=== PATIENT | female | born 1995 | race Caucasian/White ===

== ENCOUNTER 2017-02-09 13:36 | Emergency (ER) | payer SELFPAY ==
[~2017-02-09] VITALS: Ht 167.6 cm; Wt 95.3 kg
[2017-02-09 14:07] VITALS: BP 123/77
[2017-02-09] MEDS ORDERED: CITA40TA12 PO ×2 (14:08→14:11)
--- NOTE | 2017-02-09 14:09 | PHYS DOC ---
Adult General Chief Complaint Chief Complaint: MEDICATION REFILL [facility] HPI Patient is a 21 year old female presents to the emergency department stating that she needs a refill of her Celexa 40 mg in which she takes daily. She also states that she needs a refill of her Percocet 10 mg. She states that she is in between doctors and does not have enough to get her through. She states that she has a doctor's appointment in 3 weeks. Patient states that she lives in [facility] and has recently moved to this area. Review of Systems Review of Systems Constitutional: Denies fever or chills [] Eyes: Denies change in visual acuity, redness, or eye pain [] HENT: Denies nasal congestion or sore throat [] Respiratory: Denies cough or shortness of breath [] Cardiovascular: No additional information not addressed in HPI [] GI: Denies abdominal pain, nausea, vomiting, bloody stools or diarrhea [] : Denies dysuria or hematuria [] Musculoskeletal: Denies back pain or joint pain [] Integument: Denies rash or skin lesions [] Neurologic: Denies headache, focal weakness or sensory changes [] Endocrine: Denies polyuria or polydipsia [] Allergies Allergies Allergies Coded Allergies Type Severity Reaction Last Updated Verified Penicillins Allergy Intermediate 02/09/17 Yes cyclobenzaprine Allergy Intermediate 02/09/17 Yes morphine Allergy Intermediate 02/09/17 Yes Physical Exam Physical Exam Constitutional: Well developed, well nourished, no acute distress, non-toxic appearance. [] HENT: Normocephalic, atraumatic, bilateral external ears normal, oropharynx moist, no oral exudates, nose normal. [] Eyes: PERRLA, EOMI, conjunctiva normal, no discharge. [] Neck: Normal range of motion, no tenderness, supple, no stridor. [] Cardiovascular:Heart rate regular rhythm, no murmur [] Lungs & Thorax: Bilateral breath sounds clear to auscultation [] Skin: Warm, dry, no erythema, no rash. [] Back: No tenderness Extremities: No tenderness, no cyanosis, no clubbing, ROM intact, no edema. [] Neurologic: Alert and oriented X 3, normal motor function, normal sensory function, no focal deficits noted. [] Psychologic: Affect normal, judgement normal, mood normal. [] Current Patient Data Vital Signs Vital Signs Date Time Temp Pulse Resp B/P (MAP) Pulse Ox O2 Delivery O2 Flow Rate FiO2 02/09/17 14:07 98.3 108 18 123/77 (92) 100 Room Air 98.3 EKG EKG [] Radiology/Procedures Radiology/Procedures [] Course & Med Decision Making Course & Med Decision Making Pertinent Labs and Imaging studies reviewed. (See chart for details) We'll provide patient with Celexa here in the emergency department. She'll be provided with a prescription for this medication for at least the next 2 weeks. Patient will also be provided with a Percocet here in the emergency department. She was informed that we do not refill chronic pain medication here in the emergency department. Patient states she understood this however she does have a doctor's appointment 3 weeks. Patient also states that she is supposed to have surgery done in [facility]. Patient was instructed to use Tylenol or ibuprofen for pain and discomfort. Also once again mentioned to her will fall her prescription for Celexa. Patient agrees with discharge instructions, treatment regimens and follow-up recommendations. Signs and symptoms to return back to emergency department as been provided. All questions were answered for patient at her bedside. After setting up the prescription for Celexa and talking with her about Percocet patient has asked if I can't find her with a higher dose of Percocet here in the emergency department which she can cut in half and take half of it now and half ago when she gets home. Explained to her that we have to document the actual encounter of her taking the medication to get in half and allowing her to take at home was not a possibility. Patient states that she had talked to her physician who is going to fax her Percocet and her Celexa prescription up to the pharmacy here. Patient is requesting to have a Percocet here and will be discharged home. [] Dragon Disclaimer Dragon Disclaimer This electronic medical record was generated, in whole or in part, using a voice recognition dictation system. Departure Departure Impression: Primary Impression: Medication refill Disposition: HOME, SELF-CARE Condition: STABLE Patient Instructions: Medication Refill, Emergency Department Additional Instructions: Activity as tolerated. Tylenol or ibuprofen for pain and discomfort. Follow-up with your physician in which you have an appointment in 3 weeks. Return to emergency department sign symptoms of become worse. LIZETTE DYKES APRN Feb 09, 2017 14:09
[2017-02-09] MEDS ORDERED: oxyCODONE/APAP 5/325 1 TAB TABLET PO ONE (14:30)
== END 2017-02-09 14:25 | disposition home or self-care (01) ==
LOC: ER 13:36
DX: Z76.0 Encounter for issue of repeat prescription (principal); Z88.0 Allergy status to penicillin; Z88.8 Allergy status to other drugs, medicaments and biological substances; Z88.5 Allergy status to narcotic agent
CPT/HCPCS: 99282

== ENCOUNTER 2018-05-30 14:24 | Emergency (ER) | payer MEDICAID ==
[~2018-05-30] VITALS: Ht 160 cm; Wt 81.6 kg
[~2018-05-30 14:24] MED LIST: CITA40TA12 PO
[2018-05-30 14:50] VITALS: BP 130/73
[2018-05-30] MEDS ORDERED: DICL50TA4 PO (14:55)
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
== END 2018-05-30 15:01 | disposition home or self-care (01) ==
LOC: ER 14:24 → EDBD 14:24 → ER 15:01
DX: S00.83XA Contusion of other part of head, initial encounter (principal); Z88.0 Allergy status to penicillin; Z88.5 Allergy status to narcotic agent; Z88.8 Allergy status to other drugs, medicaments and biological substances; Y04.0XXA Assault by unarmed brawl or fight, initial encounter; Y93.89 Activity, other specified; Y92.89 Other specified places as the place of occurrence of the external cause; Y99.8 Other external cause status
CPT/HCPCS: 99283

== ENCOUNTER 2019-05-06 20:51 | Emergency (ER) | payer MEDICAID ==
[~2019-05-06] VITALS: Ht 160 cm; Wt 59.0 kg
[~2019-05-06 20:51] MED LIST changes: +DICL50TA4 PO
[2019-05-06 21:15] VITALS: BP 130/80
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
[2019-05-06] MEDS ORDERED: clonazePAM 0.5 MG TABLET PO ONE (22:30)
== END 2019-05-06 22:38 | disposition home or self-care (01) ==
LOC: ER 20:51
DX: R56.9 Unspecified convulsions (principal); Z76.0 Encounter for issue of repeat prescription; F41.9 Anxiety disorder, unspecified; Z88.0 Allergy status to penicillin; Z88.5 Allergy status to narcotic agent; Z88.8 Allergy status to other drugs, medicaments and biological substances
CPT/HCPCS: 99283

== ENCOUNTER 2021-03-02 14:36 | Emergency (ER) | payer MEDICAID ==
[~2021-03-02] VITALS: Ht 162.6 cm; Wt 66.1 kg
[2021-03-02 15:05] VITALS: BP 108/63
[2021-03-02] MEDS ORDERED: clonazePAM 0.5 MG TABLET PO STA (15:40)
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
== END 2021-03-02 15:57 | disposition home or self-care (01) ==
LOC: ER 14:36
DX: G47.00 Insomnia, unspecified (principal); F41.9 Anxiety disorder, unspecified; F31.9 Bipolar disorder, unspecified; Z76.0 Encounter for issue of repeat prescription; Z88.0 Allergy status to penicillin; Z88.5 Allergy status to narcotic agent; Z88.8 Allergy status to other drugs, medicaments and biological substances
CPT/HCPCS: 99283

== ENCOUNTER 2021-05-01 23:30 | Emergency (ER) | payer MEDICAID ==
[~2021-05-01] VITALS: Ht 165.1 cm; Wt 63.6 kg
[2021-05-01] MEDS ORDERED: LEVE500T56 PO (23:46)
[2021-05-01] MEDS ORDERED: LORA2TAB89 PO (23:46)
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
[2021-05-02] MEDS ORDERED: LORA2TAB89 PO (00:06)
[2021-05-02] MEDS ORDERED: LEVE500T56 PO (00:06)
== END 2021-05-02 00:04 | disposition home or self-care (01) ==
LOC: ER 23:30
DX: G40.909 Epilepsy, unspecified, not intractable, without status epilepticus (principal); Z76.0 Encounter for issue of repeat prescription; F31.9 Bipolar disorder, unspecified; F41.9 Anxiety disorder, unspecified; Z88.0 Allergy status to penicillin; Z88.5 Allergy status to narcotic agent; Z88.8 Allergy status to other drugs, medicaments and biological substances
CPT/HCPCS: 99281